=== PATIENT | male | born 1955 | race Caucasian/White ===

== ENCOUNTER 2017-07-31 18:51 | Inpatient (IN) | payer BC, OTHER ==
[~2017-07-31] VITALS: Ht 175.3 cm; Wt 70.8 kg
[2017-07-31] MEDS ORDERED: SODIUM CHLORIDE FLUSH 10ML SYR IVF ONE (19:00)
[2017-07-31] MEDS ORDERED: SODIUM CHLORIDE 0.9% 1,000ML IVBOLUS ONE (19:00)
[2017-07-31 19:24] LABS: PH, VENOUS 7.378 pH (7.320-7.420)
[2017-07-31 19:28] LABS: BASOPHILS # (AUTO) 0.05 x10^3/uL (0-0.1); BASOPHILS % (AUTO) 1 % (0-1); EOSINOPHILS # (AUTO) 0.15 x10^3/uL (0-0.4); EOSINOPHILS % (AUTO) 2 % (1-7); LYMPHOCYTES # (AUTO) 2.76 x10^3/uL (1-3.4); LYMPHOCYTES % (AUTO) 31 % (22-44); MD NO; MEAN CORPUSCULAR HEMOGLOBIN 27.1 pg (27.5-34.5); MEAN CORPUSCULAR HGB CONC 33.3 g/dL (33.2-36.2); MEAN CORPUSCULAR VOLUME 81.6 fL (81-97); MEAN PLATELET VOLUME 9.4 fL (7.4-10.4); MONOCYTES # (AUTO) 0.85 x10^3/uL (0.2-0.8); MONOCYTES % (AUTO) 10 % (2-9); NEUTROPHILS # (AUTO) 5.02 x10^3/uL (1.8-6.8); NEUTROPHILS % (AUTO) 57 % (42-75); PLATELET COUNT 160 x10^3/uL (130-400); RED BLOOD COUNT 6.28 x10^6/uL (4.38-5.82); RED CELL DISTRIBUTION WIDTH 13.7 % (9.4-14.8)
[2017-07-31] MEDS ORDERED: CEFTRIAXONE 1,000 MG in SODIUM CHLORIDE 0.9% 50 ML IVPB ONE (19:30)
[2017-07-31 19:35] LABS: ACETONE, SERUM Negative (Negative)
[2017-07-31 19:41] LABS: ALANINE AMINOTRANSFERASE 17 U/L (12-78); ALBUMIN 3.3 g/dL (3.4-5.0); ANION GAP 8 mmol/L (5-15); CALCIUM 9.2 mg/dL (8.5-10.1); CHLORIDE 105 mmol/L (98-107); CREATININE 1.04 mg/dL (0.7-1.3)
[2017-07-31 19:48] LABS: ALKALINE PHOSPHATASE 78 U/L (45-117); BILIRUBIN,TOTAL 0.8 mg/dL (0.2-1.0); TOTAL PROTEIN 7.2 g/dL (6.4-8.2)
[2017-07-31 19:54] LABS: HCT (SEDRATE) 51.2 % (39.2-51.8)
[2017-07-31] MEDS ORDERED: CEFTRIAXONE PMX 1GM/50ML 50 ML ONE (20:18)
[2017-07-31] MEDS ORDERED: OMEP-110 PO (20:45)
[2017-07-31] MEDS ORDERED: SODIUM CHLORIDE FLUSH 10ML SYR IVF PRN (21:00)
[2017-07-31] MEDS ORDERED: SODIUM CHLORIDE 0.9% 1,000 ML IV SCH (21:05)
[2017-07-31] MEDS ORDERED: POLYETHYLENE GLYCOL 17 GM PACKET PO PRN (21:30)
[2017-07-31] MEDS ORDERED: VANCOMYCIN PER PHARMACY MC PRN (21:30)
[2017-07-31] MEDS ORDERED: ENALAPRILAT 1.25 MG/ML, 2ML IVPush PRN (21:30)
[2017-07-31] MEDS ORDERED: BISACODYL 10 MG SUPP PR PRN (21:30)
[2017-07-31] MEDS ORDERED: DOCUSATE 100 MG CAPSULE PO PRN (21:30)
[2017-07-31] MEDS ORDERED: VANCOMYCIN PMX 1GM/200ML 200 ML IV ONE (21:30)
[2017-07-31] MEDS ORDERED: ACETAMINOPHEN 325 MG TABLET PO PRN (21:30)
[2017-07-31] MEDS ORDERED: hydrALAzine 20 MG/ML, 1ML IVPush PRN (21:30)
[2017-07-31] MEDS ORDERED: ONDANSETRON 2MG/ML, 2ML IVPush PRN (21:30)
[2017-07-31 21:46] LABS: FREE T4 (FREE THYROXINE) 1.27 ng/dL (0.76-1.46); HEMOGLOBIN A1C 10.2 % (4.2-6.3); THYROID STIMULATING HORMONE 2.11 mIU/L (0.358-3.740)
[2017-07-31 22:17] VITALS: BP 151/78
[2017-07-31] MEDS ORDERED: PHARMACOKINETIC CONSULTATION MC ONE (22:30)
[2017-07-31] MEDS ORDERED: PHARMACOKINETIC MONITORING MC PRN (22:30)
[2017-08-01] MEDS: INSULIN LISPRO 100 UNITS/ML, PEN SQ-INSULIN SCH ×5 (00:06→21:15)
[2017-08-01] MEDS: AMPICILLIN/SULBACTAM 3 GM in SODIUM CHLORIDE 0.9% 100 ML IV SCH ×5 (00:06→23:48)
[2017-08-01] MEDS: NICOTINE 14MG/24 HR PATCH.TD24 TD SCH ×2 (00:07→23:48)
[2017-08-01] MEDS: ENOXAPARIN 40 MG/0.4 ML SQ SCH ×2 (00:08→23:48)
[2017-08-01] MEDS: FLUCONAZOLE 400 MG/200 ML 200 ML IV SCH (01:09)
[2017-08-01 01:20] VITALS: BP 145/75
[2017-08-01] MEDS: VANCOMYCIN 1,400 MG in SODIUM CHLORIDE 0.9% 250 ML IV SCH (03:18)
[2017-08-01 05:17] LABS: ALANINE AMINOTRANSFERASE 13 U/L (12-78); ALBUMIN 2.5 g/dL (3.4-5.0); ANION GAP 8 mmol/L (5-15); CALCIUM 7.7 mg/dL (8.5-10.1); CHLORIDE 110 mmol/L (98-107); CHOLESTEROL, TOTAL 131 mg/dL (140-239); TRIGLYCERIDES 78 mg/dL (50-200); VLDL CHOLESTEROL 16 mg/dL (0-25)
[2017-08-01 05:20] LABS: ALKALINE PHOSPHATASE 63 U/L (45-117); BILIRUBIN,TOTAL 1.1 mg/dL (0.2-1.0); CHOL/HDL RATIO 3.2; HDL CHOL % 31 % (26-37); HDL CHOLESTEROL (DIRECT) 41 mg/dL (40-60); LDL CHOLESTEROL,CALCULATED 74 mg/dL (54-169); LDL/HDL RATIO 1.8 (0.5-3.0); TOTAL PROTEIN 5.8 g/dL (6.4-8.2)
[2017-08-01 05:41] LABS: BASOPHILS # (AUTO) 0.05 x10^3/uL (0-0.1); BASOPHILS % (AUTO) 1 % (0-1); EOSINOPHILS # (AUTO) 0.18 x10^3/uL (0-0.4); EOSINOPHILS % (AUTO) 2 % (1-7); LYMPHOCYTES # (AUTO) 2.89 x10^3/uL (1-3.4); LYMPHOCYTES % (AUTO) 37 % (22-44); MD NO; MEAN CORPUSCULAR HEMOGLOBIN 27.1 pg (27.5-34.5); MEAN CORPUSCULAR HGB CONC 33.1 g/dL (33.2-36.2); MEAN CORPUSCULAR VOLUME 81.8 fL (81-97); MEAN PLATELET VOLUME 9.9 fL (7.4-10.4); MONOCYTES # (AUTO) 0.64 x10^3/uL (0.2-0.8); MONOCYTES % (AUTO) 8 % (2-9); NEUTROPHILS # (AUTO) 4.13 x10^3/uL (1.8-6.8); NEUTROPHILS % (AUTO) 52 % (42-75); PLATELET COUNT 148 x10^3/uL (130-400); RED BLOOD COUNT 5.73 x10^6/uL (4.38-5.82); RED CELL DISTRIBUTION WIDTH 13.8 % (9.4-14.8)
[2017-08-01 07:25] VITALS: BP 170/78
[2017-08-01] MEDS: metFORMIN 500 MG TABLET PO SCH ×2 (08:57→17:36)
[2017-08-01] MEDS: OMEPRAZOLE 20 MG CAPSULE.DR PO SCH (08:58)
[2017-08-01] MEDS: LISINOPRIL 10 MG TABLET PO SCH (09:01)
[2017-08-01 09:03] VITALS: BP 142/65
[2017-08-01 14:31] VITALS: BP 99/64
[2017-08-01 15:54] VITALS: BP 118/65
[2017-08-01 20:22] VITALS: BP 100/57
[2017-08-02] MEDS: FLUCONAZOLE 400 MG/200 ML 200 ML IV SCH (01:18)
[2017-08-02 01:37] VITALS: BP 113/63
[2017-08-02 02:22] LABS: CLOSTRIDIUM DIFFICILE ANTIGEN NEGATIVE; CLOSTRIDIUM DIFFICILE TOXIN NEGATIVE (Negative)
[2017-08-02] MEDS: VANCOMYCIN 1,400 MG in SODIUM CHLORIDE 0.9% 250 ML IV SCH (03:57)
[2017-08-02] MEDS: AMPICILLIN/SULBACTAM 3 GM in SODIUM CHLORIDE 0.9% 100 ML IV SCH ×4 (05:48→23:53)
[2017-08-02 07:09] VITALS: BP 159/84
[2017-08-02] MEDS: INSULIN LISPRO 100 UNITS/ML, PEN SQ-INSULIN SCH ×4 (09:52→20:34)
[2017-08-02] MEDS: LISINOPRIL 10 MG TABLET PO SCH (09:52)
[2017-08-02] MEDS: OMEPRAZOLE 20 MG CAPSULE.DR PO SCH (09:52)
[2017-08-02] MEDS: metFORMIN 500 MG TABLET PO SCH ×2 (09:53→17:13)
[2017-08-02 14:15] VITALS: BP 101/52
[2017-08-02] MEDS: ENOXAPARIN 40 MG/0.4 ML SQ SCH (23:52)
[2017-08-02] MEDS: NICOTINE 14MG/24 HR PATCH.TD24 TD SCH (23:52)
[2017-08-03 00:25] VITALS: BP 144/68
[2017-08-03] MEDS: FLUCONAZOLE 400 MG/200 ML 200 ML IV SCH (01:18)
[2017-08-03] MEDS: VANCOMYCIN 1,400 MG in SODIUM CHLORIDE 0.9% 250 ML IV SCH (03:40)
[2017-08-03] MEDS: AMPICILLIN/SULBACTAM 3 GM in SODIUM CHLORIDE 0.9% 100 ML IV SCH ×3 (05:57→17:27)
[2017-08-03 07:01] VITALS: BP 134/85
[2017-08-03] MEDS: INSULIN LISPRO 100 UNITS/ML, PEN SQ-INSULIN SCH ×4 (08:19→21:00)
[2017-08-03] MEDS: LISINOPRIL 10 MG TABLET PO SCH (09:49)
[2017-08-03] MEDS: OMEPRAZOLE 20 MG CAPSULE.DR PO SCH (09:49)
[2017-08-03] MEDS: OXYcodone IR 5MG TABLET PO PRN (12:53)
[2017-08-03 13:17] VITALS: BP 158/88
[2017-08-04] MEDS: AMPICILLIN/SULBACTAM 3 GM in SODIUM CHLORIDE 0.9% 100 ML IV SCH ×5 (00:06→23:29)
[2017-08-04] MEDS: FLUCONAZOLE 400 MG/200 ML 200 ML IV SCH (01:41)
[2017-08-04 03:13] VITALS: BP 133/75
[2017-08-04 03:29] LABS: ANION GAP 4 mmol/L (5-15); CHLORIDE 111 mmol/L (98-107)
[2017-08-04 03:31] LABS: VANCOMYCIN,TROUGH 7.8 mcg/mL (5.0-10.0)
[2017-08-04] MEDS: VANCOMYCIN 1,400 MG in SODIUM CHLORIDE 0.9% 250 ML IV SCH ×2 (03:45→19:57)
[2017-08-04] MEDS: INSULIN LISPRO 100 UNITS/ML, PEN SQ-INSULIN SCH ×4 (07:00→19:57)
[2017-08-04 07:10] VITALS: BP 156/75
[2017-08-04] MEDS: OMEPRAZOLE 20 MG CAPSULE.DR PO SCH (08:56)
[2017-08-04] MEDS: LISINOPRIL 10 MG TABLET PO SCH (08:56)
[2017-08-04] MEDS: NICOTINE 14MG/24 HR PATCH.TD24 TD SCH (08:57)
[2017-08-04] MEDS: ENOXAPARIN 40 MG/0.4 ML SQ SCH (08:57)
[2017-08-04] MEDS ORDERED: MAGNESIUM SULFATE PMX 2GM/50ML 50 ML IV ONE (09:00)
[2017-08-04 14:05] VITALS: BP 157/77
[2017-08-04 19:40] VITALS: BP 163/82
[2017-08-04] MEDS: OXYcodone IR 5MG TABLET PO PRN (23:29)
[2017-08-05] MEDS: FLUCONAZOLE 400 MG/200 ML 200 ML IV SCH (01:02)
[2017-08-05 03:30] VITALS: BP 150/74
[2017-08-05] MEDS: AMPICILLIN/SULBACTAM 3 GM in SODIUM CHLORIDE 0.9% 100 ML IV SCH ×3 (06:29→21:41)
[2017-08-05] MEDS: INSULIN LISPRO 100 UNITS/ML, PEN SQ-INSULIN SCH ×4 (07:00→21:00)
[2017-08-05] MEDS ORDERED: FENTANYL PF 100 MCG/2ML ONE (07:15)
[2017-08-05] MEDS ORDERED: NITROGLYCERIN 5 MG/ML, 10ML ONE (07:15)
[2017-08-05] MEDS ORDERED: FLUMAZENIL 0.1 MG/1 ML, 5ML ONE (07:15)
[2017-08-05] MEDS ORDERED: MIDAZOLAM 1 MG/ML, 5ML ONE (07:15)
[2017-08-05] MEDS ORDERED: HEPARIN 1,000 UNITS/ML, 10ML ONE (07:16)
[2017-08-05] MEDS ORDERED: PROTAMINE SULFATE 10 MG/ML, 25ML ONE (07:16)
[2017-08-05] MEDS ORDERED: NALOXONE 1 MG/ML, 2ML ONE (07:16)
[2017-08-05] MEDS ORDERED: LIDOCAINE 2%, 20ML ONE (07:26)
[2017-08-05 07:59] VITALS: BP 143/74
[2017-08-05] MEDS: OMEPRAZOLE 20 MG CAPSULE.DR PO SCH (11:42)
[2017-08-05] MEDS: NICOTINE 14MG/24 HR PATCH.TD24 TD SCH (11:42)
[2017-08-05] MEDS: LISINOPRIL 10 MG TABLET PO SCH (11:42)
[2017-08-05 13:58] VITALS: BP 135/75
[2017-08-05] MEDS: ENOXAPARIN 40 MG/0.4 ML SQ SCH (14:19)
[2017-08-05] MEDS: VANCOMYCIN 1,400 MG in SODIUM CHLORIDE 0.9% 250 ML IV SCH (16:38)
[2017-08-05] MEDS: OXYcodone IR 5MG TABLET PO PRN (17:07)
[2017-08-05 20:31] VITALS: BP 146/71
[2017-08-06 00:54] VITALS: BP 147/73
[2017-08-06] MEDS: AMPICILLIN/SULBACTAM 3 GM in SODIUM CHLORIDE 0.9% 100 ML IV SCH ×2 (01:42→08:18)
[2017-08-06] MEDS: FLUCONAZOLE 400 MG/200 ML 200 ML IV SCH (02:17)
[2017-08-06] MEDS: INSULIN LISPRO 100 UNITS/ML, PEN SQ-INSULIN SCH ×4 (07:00→21:00)
[2017-08-06 07:30] VITALS: BP 156/72
[2017-08-06] MEDS: OXYcodone IR 5MG TABLET PO PRN ×3 (08:19→20:04)
[2017-08-06] MEDS: VANCOMYCIN 1,400 MG in SODIUM CHLORIDE 0.9% 250 ML IV SCH (10:03)
[2017-08-06] MEDS: NICOTINE 14MG/24 HR PATCH.TD24 TD SCH (10:03)
[2017-08-06] MEDS: ENOXAPARIN 40 MG/0.4 ML SQ SCH (10:03)
[2017-08-06] MEDS: OMEPRAZOLE 20 MG CAPSULE.DR PO SCH (10:04)
[2017-08-06] MEDS: LISINOPRIL 10 MG TABLET PO SCH (10:04)
[2017-08-06] MEDS: CEPHALEXIN 500 MG CAPSULE PO SCH ×3 (10:30→22:30)
[2017-08-06] MEDS: LACTOBACILLUS CHEW TABLET PO SCH ×3 (11:43→20:04)
[2017-08-06 14:42] VITALS: BP 130/70
[2017-08-06 19:23] VITALS: BP 151/71
[2017-08-07 01:55] VITALS: BP 130/69
[2017-08-07] MEDS: CEPHALEXIN 500 MG CAPSULE PO SCH ×4 (04:30→22:30)
[2017-08-07] MEDS: OXYcodone IR 5MG TABLET PO PRN (04:40)
[2017-08-07 05:31] LABS: INTERNATIONAL NORMALIZED RATIO 0.96 (0.93-1.1)
[2017-08-07 05:39] LABS: BASOPHILS # (AUTO) 0.06 x10^3/uL (0-0.1); BASOPHILS % (AUTO) 1 % (0-1); CHLORIDE 106 mmol/L (98-107); EOSINOPHILS # (AUTO) 0.15 x10^3/uL (0-0.4); EOSINOPHILS % (AUTO) 2 % (1-7); LYMPHOCYTES # (AUTO) 2.71 x10^3/uL (1-3.4); LYMPHOCYTES % (AUTO) 35 % (22-44); MD NO; MEAN CORPUSCULAR HEMOGLOBIN 27.1 pg (27.5-34.5); MEAN CORPUSCULAR HGB CONC 33.1 g/dL (33.2-36.2); MEAN CORPUSCULAR VOLUME 81.9 fL (81-97); MEAN PLATELET VOLUME 8.8 fL (7.4-10.4); MONOCYTES # (AUTO) 0.84 x10^3/uL (0.2-0.8); MONOCYTES % (AUTO) 11 % (2-9); NEUTROPHILS # (AUTO) 4.09 x10^3/uL (1.8-6.8); NEUTROPHILS % (AUTO) 52 % (42-75); PLATELET COUNT 200 x10^3/uL (130-400); RED BLOOD COUNT 6.06 x10^6/uL (4.38-5.82); RED CELL DISTRIBUTION WIDTH 13.8 % (9.4-14.8)
[2017-08-07 05:58] LABS: ANION GAP 10 mmol/L (5-15); CALCIUM 8.8 mg/dL (8.5-10.1); CREATININE 1.12 mg/dL (0.7-1.3)
[2017-08-07] MEDS: INSULIN LISPRO 100 UNITS/ML, PEN SQ-INSULIN SCH ×4 (07:00→21:28)
[2017-08-07 07:16] VITALS: BP 139/68
[2017-08-07] MEDS: OMEPRAZOLE 20 MG CAPSULE.DR PO SCH (11:06)
[2017-08-07] MEDS: LACTOBACILLUS CHEW TABLET PO SCH ×3 (11:06→21:28)
[2017-08-07] MEDS: LISINOPRIL 10 MG TABLET PO SCH (11:06)
[2017-08-07] MEDS: NICOTINE 14MG/24 HR PATCH.TD24 TD SCH (11:07)
[2017-08-07] MEDS: ENOXAPARIN 40 MG/0.4 ML SQ SCH (11:07)
[2017-08-07 14:04] VITALS: BP 155/77
[2017-08-07 19:34] VITALS: BP 153/76
[2017-08-08 01:35] VITALS: BP 151/77
[2017-08-08] MEDS: CEPHALEXIN 500 MG CAPSULE PO SCH ×4 (04:31→18:30)
[2017-08-08] MEDS: INSULIN LISPRO 100 UNITS/ML, PEN SQ-INSULIN SCH ×4 (08:10→21:01)
[2017-08-08 08:23] VITALS: BP 131/80
[2017-08-08] MEDS: ENOXAPARIN 40 MG/0.4 ML SQ SCH (08:56)
[2017-08-08] MEDS: OMEPRAZOLE 20 MG CAPSULE.DR PO SCH (08:56)
[2017-08-08] MEDS: LACTOBACILLUS CHEW TABLET PO SCH ×3 (08:56→21:03)
[2017-08-08] MEDS: LISINOPRIL 10 MG TABLET PO SCH (08:57)
[2017-08-08] MEDS: NICOTINE 14MG/24 HR PATCH.TD24 TD SCH (08:57)
[2017-08-08 14:30] VITALS: BP 134/74
[2017-08-08] MEDS: OXYcodone IR 5MG TABLET PO PRN (18:40)
[2017-08-08 19:30] VITALS: BP 129/64
[2017-08-09] MEDS: OXYcodone IR 5MG TABLET PO PRN ×3 (00:29→20:36)
[2017-08-09] MEDS: CEPHALEXIN 500 MG CAPSULE PO SCH ×4 (00:29→18:30)
[2017-08-09 03:27] VITALS: BP 122/72
[2017-08-09] MEDS: INSULIN LISPRO 100 UNITS/ML, PEN SQ-INSULIN SCH ×4 (07:57→20:33)
[2017-08-09 08:30] VITALS: BP 135/77
[2017-08-09] MEDS: LISINOPRIL 10 MG TABLET PO SCH (11:18)
[2017-08-09] MEDS: OMEPRAZOLE 20 MG CAPSULE.DR PO SCH (11:18)
[2017-08-09] MEDS: LACTOBACILLUS CHEW TABLET PO SCH ×3 (11:19→20:36)
[2017-08-09] MEDS: ENOXAPARIN 40 MG/0.4 ML SQ SCH (11:37)
[2017-08-09] MEDS: NICOTINE 14MG/24 HR PATCH.TD24 TD SCH (11:38)
[2017-08-09 14:00] VITALS: BP 151/75
[2017-08-09 18:51] VITALS: BP 163/81
[2017-08-10] MEDS: CEPHALEXIN 500 MG CAPSULE PO SCH ×5 (00:44→22:39)
[2017-08-10 01:50] VITALS: BP 129/72
[2017-08-10] MEDS: INSULIN LISPRO 100 UNITS/ML, PEN SQ-INSULIN SCH ×4 (07:00→20:52)
[2017-08-10] MEDS: ENOXAPARIN 40 MG/0.4 ML SQ SCH (07:11)
[2017-08-10] MEDS: LACTOBACILLUS CHEW TABLET PO SCH ×3 (07:20→19:56)
[2017-08-10 08:07] VITALS: BP_SYST 135; BP_SYST 154; BP_DIAS 64; BP_DIAS 75
[2017-08-10] MEDS: OMEPRAZOLE 20 MG CAPSULE.DR PO SCH (08:33)
[2017-08-10] MEDS: LISINOPRIL 10 MG TABLET PO SCH (08:33)
[2017-08-10] MEDS ORDERED: MEPERIDINE/PF 25MG/0.5ML IVPush PRN (11:00)
[2017-08-10] MEDS ORDERED: ACETAMINOPHEN 325 MG TABLET PO PRN (11:00)
[2017-08-10] MEDS ORDERED: OXYcodone 5 MG/5 ML ORAL.SOL UDC PO PRN (11:00)
[2017-08-10] MEDS ORDERED: PROMETHAZINE 12.5 MG SUPP PR PRN (11:00)
[2017-08-10] MEDS ORDERED: FENTANYL PF 100 MCG/2ML IV PRN (11:00)
[2017-08-10] MEDS ORDERED: ONDANSETRON 2MG/ML, 2ML IVPush PRN (11:00)
[2017-08-10] MEDS ORDERED: hydrALAzine 20 MG/ML, 1ML IV PRN (11:00)
[2017-08-10] MEDS ORDERED: LORazepam 2 MG/ML, 1ML IVPush PRN (11:00)
[2017-08-10] MEDS ORDERED: LABETALOL 5MG/ML, 20ML IV PRN (11:00)
[2017-08-10] MEDS ORDERED: ONDANSETRON 2MG/ML, 2ML ONE (11:28)
[2017-08-10] MEDS ORDERED: ROCURONIUM 10 MG/ML,10ML ONE (11:28)
[2017-08-10] MEDS ORDERED: CEFAZOLIN 1,000 MG ONE (11:28)
[2017-08-10] MEDS ORDERED: PHENYLEPHRINE 10 MG/ML ONE (11:28)
[2017-08-10] MEDS ORDERED: DEXAMETHASONE 4 MG/ML, 1ML ONE (11:28)
[2017-08-10] MEDS ORDERED: PROPOFOL 10 MG/ML, 20ML ONE (11:28)
[2017-08-10] MEDS ORDERED: THROMBIN 5,000 UNIT VIAL TP ONE (11:51)
[2017-08-10] MEDS ORDERED: BACITRACIN 50,000 UNIT IM ONE (11:51)
[2017-08-10] MEDS ORDERED: HEPARIN 1,000 UNITS/ML, 10ML IV ONE (11:51)
[2017-08-10] MEDS ORDERED: PROTAMINE SULFATE 10 MG/ML, 5ML IVPush ONE (12:28)
[2017-08-10] MEDS ORDERED: ACETAMINOPHEN 650 MG/20.3 ML UDC ONE (13:02)
[2017-08-10] MEDS ORDERED: OXYcodone 5 MG/5 ML ORAL.SOL UDC ONE (13:02)
[2017-08-10] MEDS: morphine SULFATE 10 MG/ML, 1ML IV PRN ×2 (13:11→13:36)
[2017-08-10] MEDS: morphine SULFATE 10 MG/ML, 1ML IVPush PRN ×2 (13:25→13:40)
[2017-08-10 14:25] VITALS: BP 153/71
[2017-08-10] MEDS: NICOTINE 14MG/24 HR PATCH.TD24 TD SCH (14:44)
[2017-08-10] MEDS ORDERED: ONDANSETRON 2MG/ML, 2ML IV PRN (15:00)
[2017-08-10] MEDS ORDERED: morphine SULFATE 10 MG/ML, 1ML IV PRN (15:00)
[2017-08-10 19:00] VITALS: BP 108/66
[2017-08-10] MEDS: CEFAZOLIN PMX 1GM/50ML 50 ML IVPB SCH (19:56)
[2017-08-10] MEDS: SODIUM CHLORIDE FLUSH 10ML SYR IVF SCH (19:57)
[2017-08-10 23:06] VITALS: BP 103/59
[2017-08-11 02:20] VITALS: BP 126/63
[2017-08-11] MEDS: CEPHALEXIN 500 MG CAPSULE PO SCH ×3 (03:51→15:39)
[2017-08-11] MEDS: CEFAZOLIN PMX 1GM/50ML 50 ML IVPB SCH (03:51)
[2017-08-11 07:34] VITALS: BP 131/67
[2017-08-11] MEDS: INSULIN LISPRO 100 UNITS/ML, PEN SQ-INSULIN SCH ×3 (07:34→15:39)
[2017-08-11] MEDS: LISINOPRIL 10 MG TABLET PO SCH (08:29)
[2017-08-11] MEDS: LACTOBACILLUS CHEW TABLET PO SCH ×2 (08:29→15:39)
[2017-08-11] MEDS: OMEPRAZOLE 20 MG CAPSULE.DR PO SCH (08:29)
[2017-08-11] MEDS: ENOXAPARIN 40 MG/0.4 ML SQ SCH (08:30)
[2017-08-11] MEDS: SODIUM CHLORIDE FLUSH 10ML SYR IVF SCH (08:30)
[2017-08-11] MEDS ORDERED: LISI-167 PO (11:11)
[2017-08-11] MEDS ORDERED: CEPH-376 PO (11:11)
[2017-08-11 13:08] VITALS: BP 136/72
[2017-08-11] MEDS: NICOTINE 14MG/24 HR PATCH.TD24 TD SCH (13:46)
[2017-08-11] MEDS ORDERED: ASPI-515 PO (16:03)
== END 2017-08-11 19:00 | disposition home or self-care (01) | DRG 253 ==
LOC: ED 21:18 → EDIP 21:20 → 3NE 22:07 → 4NOR 08-10 12:11
PROVIDERS: ADMIT Internal Medicine; ATTEND Family Medicine
PROC: 041L0ZH Bypass Left Femoral Artery to Right Femoral Artery, Open Approach (ICD-10-PCS; principal; 2017-07-31)
DX: I74.5 Embolism and thrombosis of iliac artery (principal); L03.115 Cellulitis of right lower limb; E44.0 Moderate protein-calorie malnutrition; E11.52 Type 2 diabetes mellitus with diabetic peripheral angiopathy with gangrene; E11.65 Type 2 diabetes mellitus with hyperglycemia; F17.210 Nicotine dependence, cigarettes, uncomplicated; E78.00 Pure hypercholesterolemia, unspecified; G89.29 Other chronic pain; I10 Essential (primary) hypertension; I70.8 Atherosclerosis of other arteries; M19.90 Unspecified osteoarthritis, unspecified site; K21.9 Gastro-esophageal reflux disease without esophagitis; J44.9 Chronic obstructive pulmonary disease, unspecified; Z91.14 Patient's other noncompliance with medication regimen; Z80.42 Family history of malignant neoplasm of prostate; Z79.84 Long term (current) use of oral hypoglycemic drugs; Z90.49 Acquired absence of other specified parts of digestive tract; Z98.1 Arthrodesis status; Z79.82 Long term (current) use of aspirin; Z68.23 Body mass index [BMI] 23.0-23.9, adult; Z79.899 Other long term (current) drug therapy; Z79.1 Long term (current) use of non-steroidal anti-inflammatories (NSAID)
CPT/HCPCS: 36200; 36415; 75630; 80048; 80053; 80061; 80202; 82010; 82803; 82947; 82962; 83036; 83605; 83735; 84145; 84439; 84443; 85025; 85610; 85651; 86140; 87040; 87070; 87102; 87147; 87205; 87324; 93005; 93922; 93925; 96365; C1729; J0295; J0690; J0696; J1100; J1450; J1644; J1650; J2250; J2405; J2704; J2720; J3010; J3370; J3490; C1751; C1768; C1769; C1894; J2270; J2310; J2370; J3475; J7030; J7050